=== PATIENT | female | born 1935 | race Caucasian/White ===

== ENCOUNTER 2016-08-26 10:51 | Day surgery (SDC) | payer MEDICARE ==
[~2016-08-26 10:51] MED LIST: RINGERS SOLUTION,LACTATED 1,000 ML IV PRN; ceFAZolin SODIUM 1 GM VIAL IV PRN
--- OUTSIDE RECORDS SUMMARY | 2016-08-26 10:54 | XMS REPORT | Continuity of Care Document ---
:1935 Author Organization [facility] ([facility]) [place] [address] Phone [phone] Care Team Providers Name Role Phone Sonu Pierre Primary Care Provider [phone] Source Comments This disclosure is being made pursuant to the Care Everywhere program, applicable federal and state laws, and may not contain all informaitonavailable regarding this patient.[facility] ([facility]) Active Allergies and Adverse Reactions Allergen Noted Date Severity Reactions Comments Morphine 05/09/2015 Nausea & Vomiting Current Medications Prescription Sig. Disp. Refills Start Date End Date Status propranolol 10 mg tablet Take 10 mg by Active mouth daily furosemide 40 mg tablet Take 40 mg by Active mouth daily potassium chloride 10 mEq Take 10 mEq by Active XR tablet mouth daily Active Problems Problem Noted Date Non-rheumatic mitral regurgitation 05/07/2015 Social History Tobacco Use Types Packs/Day Years Used Date Never Smoker Last Filed Vital Signs Vital Sign Reading Time Taken Blood Pressure 134/74 05/09/2015 12:53 PM [employer] Pulse 60 05/09/2015 12:53 PM [employer] Temperature - - Respiratory Rate - - Height 1.6 m (5' 2.99") 05/09/2015 12:53 PM [employer] Weight 77.111 kg (170 lb) 05/09/2015 12:53 PM [employer] Body Mass Index 30.12 05/09/2015 12:53 PM [employer] Oxygen Saturation - - Plan of Care Health Maintenance Due Date Last Done Comments Hepatitis B Vaccine (1 of 3 - Primary Series) 1935 Tdap Vaccine 1945 Lipid Disorder Screening 1952 Td Vaccine 1953 Colonoscopy 08/17/1984 Zoster Vaccine 1994 Osteoporosis Screening (DXA Bone Density) 08/19/1999 Pneumococcal Vaccine (1 of 2 - PCV13) 08/19/1999 Influenza Vaccine: Seasonal (#1) 12/17/2015 Results from Last 3 Months Not on file
[2016-08-26] MEDS ORDERED: RINGERS SOLUTION,LACTATED 1,000 ML IV ONE (11:50)
[2016-08-26] MEDS ORDERED: BUPIVACAINE HCL 50 ML VIAL IJ ONE ×2 (12:27)
--- NOTE | 2016-08-26 12:49 | OR ---
Operative Report - Dictated Report Narrative: Date: 08/26/2016 Physician: Danny Gomez M.D. Automotive Mechanic: Kiran Kebede PA-C Preoperative diagnosis: Left Trigger thumb Postoperative diagnosis: Left Trigger thumb Procedure: Left thumb A1 yue release Anesthesia: MAC Plus local Complications: None Estimated blood loss: Minimal Tourniquet time: 7 Minutes at 325 mmHg Specimens: None Retained implants: None Drains: None Indications: Johana Is a 81 year-old female who has been followed in my clinic with complaints of left trigger thumb. Physical exam as demonstrated triggering of the finger. Conservative measures have failed including but not limited to passage of time, activity modification, and medications. The risks, benefits, and alternatives were discussed in clinic. The risks being bleeding, infection , nerve, tendon, blood vessel injury, persistent pain, wound complications, need for additional procedures, and persistent symptoms. Consent was obtained in the clinic. Procedure: After marking the correct extremity in the preoperative holding area, a timeout was performed in the operating room. IV antibiotics consisting of 1 g of Ancef were administered prior to the procedure. Sedation was performed by the nurse assistant professor of forestry without complication. A nonsterile tourniquet was applied to the operative upper arm. Left upper extremity was then prepped and draped in the usual sterile fashion The arm was exsanguinated and the tourniquet was inflated to 250 mmHg. 0.5% Marcaine without epinephrine was infused into the projected incision site at the palmar flexion crease over the metacarpal phalangeal joint in line with the digit. Using loupe magnification, a transverse incision was made in the appropriate palmar flexion crease in line with the digit. Blunt dissection was carried down through the subcutaneous tissues using bipolar cautery for hemostasis. Care was taken to protect the digital nerves. Staying midline along the flexor tendon, the A1 yue was identified. A saarh was made in the proximal edge of the A1 yue with a 15 blade scalpel and tenotomy scissors were utilized in order to completely transect the A1 yue. Care was to stay midline and avoid transection of the A2 yue. Soft tissues overlying the flexor tendon proximal to the A1 yue were also released ensuring that there were no other compressive structures contributing to the triggering. The finger was placed through range of motion and demonstrated no additional catching. The tendons were visualized and mobilized out of the wound, and did not demonstrate any gross pathology or masses that required debridement. The tendons were noted to be intact. Once it was felt that we had adequately decompressed the flexor tendons as they passed under the A1 yue, the tourniquet was removed. Hemostasis was obtained with pressure and bipolar cautery. There was good return of color and capillary refill to the digit. Additional half percent Marcaine without epinephrine was infused into the skin edges. The wound was thoroughly irrigated. The skin was closed with interrupted 4-0 nylon. Sterile dressings consisting of Xeroform, 4 x 4, and Zunilda were applied. All sponge, needle, blade, and instrument counts were correct prior to closing the wounds. The patient was awoken and transferred to the post-anesthesia care unit in stable condition.
[2016-08-26 13:52] VITALS: BP 130/67
== END 2016-08-26 10:52 | disposition home or self-care (01) ==
LOC: AMB 10:51
PROVIDERS: ATTEND Orthopaedic Surgery
PROC: 0LN80ZZ Release Left Hand Tendon, Open Approach (ICD-10-PCS; principal; 2016-08-26 11:45)
DX: M65.312 Trigger thumb, left thumb (principal); J45.40 Moderate persistent asthma, uncomplicated; M19.90 Unspecified osteoarthritis, unspecified site; M81.0 Age-related osteoporosis without current pathological fracture; E55.9 Vitamin D deficiency, unspecified; Z68.27 Body mass index [BMI] 27.0-27.9, adult